=== PATIENT | male | born 1970 | race Caucasian/White ===

== ENCOUNTER 2021-04-13 20:11 | Emergency (ER) | payer OTHER, SELFPAY ==
[2021-04-13] VITALS (9 sets, daily range): BP systolic 138–199; BP diastolic 83–111; PULSE 92–105; RESP 14–22; TEMP 36.9; O2SAT 99–100
--- NOTE | ~2021-04-13 | XR_ITS ---
EXAMINATION: XR chest 1V portable 04/13/2021 21:17 INDICATION: Weakness. Anxiety. PROCEDURE: AP portable chest COMPARISON: No prior studies for comparison. FINDINGS: The lungs are clear. The cardiomediastinal silhouette is within normal limits. There are no pleural effusions. There is no pneumothorax suspected. IMPRESSION: 1: NO ACUTE CARDIOPULMONARY DISEASE. Reviewed, dictated and finalized at location A. H DERRICK OPERATOR
--- NOTE | ~2021-04-13 | CT_ITS ---
EXAMINATION: CT brain wo con DATE: 04/13/2021 21:20 INDICATION: Hallucinations. TECHNIQUE: Computed tomography (CT) of the head was performed without intravenous contrast. The dose- length product was 605.33 mGy-cm. Automated exposure control and iterative reconstruction technique w ere employed. COMPARISON: None FINDINGS: There is a focal hemorrhage measuring 1.7 x 1.4 x 1.7 cm in the left basal ganglia with mil d surrounding vasogenic edema. Generalized atrophy. No midline shift. No ventriculomegaly. There are scattered mild periventricular and subcortical white matter changes, most likely related to small ves carlota ischemic disease (microangiopathy). Paranasal sinuses and mastoids are pneumatized. No depressed skull fractures. IMPRESSION: 1. Focal hemorrhage of the left basal ganglia measuring up to 1.7 cm. Mild surrounding vasogenic pam a. Dr. Ebenezer Howard discussed with Dr. Elissa Duong MD at 04/13/2021 21:27 FREELANCE ART DIRECTOR. Reviewed, dictated and finalized at location A. LANCE ART DIRECTOR IMPRESSION: 1. Focal hemorrhage of the left basal ganglia measuring up to 1.7 cm. Mild surr ounding vasogenic edema. Dr. Ebenezer Howard discussed with Dr. Elissa Duong MD at 04/13/2021 21:27 FREELANCE ART DIRECTOR.
--- NOTE | 2021-04-13 21:04 | ECG_ITS ---
Measurements Intervals [place] Rate: 97 P: 60 NM: 136 QRS: -3 QRSD: 74 T: 73 QT: 317 QTc: 403 Interpretive Statements SINUS RHYTHM BASELINE ARTIFACT- I, II, III, AVR, AVL, AVF, V1 NORMAL ECG Electronically Signed On 04-13-2021 22:06:26 SECURITIES CLERK by Xavier Stephens D.O.
--- NOTE | 2021-04-13 21:06 | ED.AMS ---
HPI - Altered Mental Status General Chief Complaint: Altered Mental Status Stated Complaint: panic attack, delusions Time Seen by Provider: 04/13/21 20:56 Source: patient, family and RN notes reviewed Mode of arrival: ambulatory Limitations: no limitations History of Present Illness HPI narrative: This is 50 year old male with history of Diabetes mellitus and chronic kidney disease who presents for evaluation of hallucinations. Patient's brother states patient has not slept in days but he does not live with patient to know for sure. He states around 3 pm patient was having a panic attack . He also states patient seemed fatigued and he was having trouble talking. He is doing much better now. Patient suffered left foot injury 3 weeks ago and he had surgery at that time. He denies taking pain medication but states he was seen at [facility] this week for right sciatica pain. He was prescribed a muscle relaxer. He states taking the muscle relaxer made him have vivid dreams. His brother states he seems to have an issue determining difference between reality and dream. Patient reported that he was seeing ants crawling on the floor. He is oriented x 4. He denies any pain. He states he is having difficulty concentrating. Related Data Allergies Allergy/AdvReac Type Severity Reaction Status Date / Time No Known Allergies Allergy Unverified 04/13/21 20:18 Review of Systems Review of Systems: All systems reviewed & are unremarkable except as noted in HPI and below PMFSH Past Medical History Medical History (Updated 04/14/21 @ 00:11 by Elissa Duong MD) Chronic kidney disease Diabetes mellitus Surgical History Surgical History (Updated 04/13/21 @ 22:09 by Elissa Duong MD) Status post left foot surgery Social History Social History (Updated 04/13/21 @ 22:09 by Elissa Duong MD) Smoking status: Never smoker Alcohol intake: never Substance use: never Exam Const: General: no acute distress and alert Orientation/consciousness: patient oriented x3 HENMT: Head: normocephalic and atraumatic Face and sinus: face symmetric Mouth: Yes Normal oral and palatal mucosa present, Yes lip normal, Yes oropharynx normal and Yes moist mucous membranes Eyes: Pupils: Equal, round and reactive pupils present EOM: EOMs intact bilaterally Resp: Effort & Inspection: normal respiratory effort and no retractions Auscultation: clear to auscultation bilaterally Cardio: Rate: tachycardic Rhythm: regular rhythm Heart sounds: no murmurs GI: GI Palp: Yes Soft to palpation, No Tenderness to palpation present (GI) and No Guarding due to palpation present (GI) Auscultation: normal bowel sounds Skin: General skin exam: normal color Rashes: no rashes Neuro: General: patient oriented x3, moves all extremities, no focal motor deficits and CN's II-XI intact bilaterally Speech: normal speech Extrem: Other: left foot in fracture boot Psych: Mental Status: mental status grossly normal Affect: Anxious affect present Course Reevaluation(s) Reevaluation #1: I discussed with patient and brother about CT finding. They request [facility] as place of transfer for neurosurgery evaluation. Cardene to be started to treat hypertension Date: 04/13/21 Time: 22:00 Consultations Consultation #1: I discussed case with Dr. Rivero with neurosurgery at [facility]. He accepts patient under attending Dr. Doherty Date: 04/13/21 Time: 22:09 Vital Signs Vital signs: Vital Signs Temperature 98.5 F 04/13/21 20:14 Pulse Rate 100 04/13/21 20:14 Respiratory Rate 20 04/13/21 20:14 Blood Pressure 190/105 H 04/13/21 20:14 Pulse Oximetry 100 04/13/21 20:14 Temperature 98.5 F 04/13/21 20:14 Pulse Rate 105 H 04/13/21 23:57 Respiratory Rate 15 04/13/21 23:57 Blood Pressure 157/83 H 04/13/21 23:57 Pulse Oximetry 99 04/13/21 23:57 MDM - Altered Mental Status Lab Data Attestation: I reviewed the patient's lab results. Michelle
[2021-04-13 21:41] LABS: Basophils Absolute Auto 0.1 K/mm3 (0.0-0.1); Basophils Percent Auto 0.7 % (0.2-1.2); Eosinophils Absolute Auto 0.2 K/mm3 (0-0.3); Eosinophils Percent Auto 1.9 % (0-4.4); Immature Granulocyte Absolute 0.03 K/mm3 (0.00-0.031); Immature Granulocyte Percent A 0.3 % (0-0.5); Lymphocytes Absolute Auto 2.84 K/mm3 (0.9-3.2); Mean Corpuscular HGB Conc 34.3 g/dl (32-36); Mean Corpuscular Hemoglobin 29.9 pg (26-34); Mean Corpuscular Volume 87.1 fl (80-100); Mean Platelet Volume 9.2 fl (7.4-10.4); Monocytes Absolute Auto 0.8 K/mm3 (0.1-0.6); Monocytes Percent Auto 7.9 % (2.6-8.5); Neutrophils Absolute Auto 5.6 K/mm3 (1.3-6.7); Neutrophils Percent Auto 59.2 % (45.5-73.1); Platelet Count Result 389 k/mm3 (150-375); Red Blood Count 4.02 M/mm3 (4.6-6.20); Red Cell Distribution Width 12.2 % (11.5-14.5); White Blood Count 9.5 K/mm3 (4.5-10.0)
[2021-04-13] MEDS: niCARdipine 20 MG/200 ML 20 MG/200 ML BAG 50 MG IV CONT (21:46)
[2021-04-13 21:50] LABS: Prothrombin Time 12.6 Seconds (11.1-14.7)
[2021-04-13 21:51] LABS: Alanine Aminotransferase 15 U/L (4-50); Albumin Level 4.1 g/dL (3.5-5.1); Alkaline Phosphatase 132 U/L (38-126); Anion Gap 9 mmol/L (8-16); Aspartate Amino Transferase 20 U/L (17-59); Bilirubin,Total 0.3 mg/dL (0.2-1.3); Blood Urea Nitrogen 43 mg/dL (9-20); Calcium 9.5 mg/dL (8.4-10.2); Carbon Dioxide 25 mmol/L (22-30); Chloride 91 mmol/L (98-107); Creatine Kinase 93 U/L (55-170); Estimated CRCL calculation 27 ml/min; Estimated Glomerular Filt Rate 26; Glucose 174 mg/dL (65-110); Partial Thromboplastin Time 37.5 SECONDS (22.3-36.8); Potassium 4.5 mmol/L (3.4-5.0); Sodium 125 mmol/L (137-145)
[2021-04-13 21:59] LABS: Ammonia < 9 umol/L (9-30); Ethanol < 10 mg/dL (<10)
[2021-04-13 21:59] LABS: Alveolar/Arterial O2 Gradient 17.8 mmHg; Base Excess ABG -3.6 mEq/l (+/-2.0); Device ROOM AIR; Fractional Inspired Oxygen 21 %; HCO3 ABG 19.6 mEq/l (22.0-26.0); Oxygen Content ABG 16.7 %vol (16.0-22.0); Oxygen Saturation ABG 97.6 % (95.0-100.0); Oxyhemoglobin 96.2 % THb (90.0-100.0); PO2 FiO2 Ratio Arterial Blood 4.57 %; Site Drawn RIGHT BRACHIAL; Total Hemoglobin 12.3 g/dL (12.0-18.0); pH ABG 7.433 (7.350-7.450)
[2021-04-13 22:35] LABS: Add Urine Microscopic? YES; Appearance Urine Clear (Clear); Bilirubin Urine Negative (Negative); Blood Urine 1+ (Negative); Color Urine Straw (Yellow); Glucose Urine UA 1+ mg/dL (Negative); Ketones Urine Trace mg/dL (Negative); Leukocyte Esterase Ur Negative LEU/UL (Negative); Mucus Urine Rare /lpf; Nitrate Urine Negative (Negative); Protein Urine 2+ mg/dL (Negative); RBC Urine 0-2 /hpf (0-2); Specific Grav Ur 1.006 (1.001-1.035); Urobilinogen Urine Negative mg/dL (<2.0)
[2021-04-13] MEDS: SODIUM CHLORIDE 0.9% IV 1,000 ML 999 ML IV CONT (22:36)
[2021-04-13 22:45] LABS: Amphetamine Screen Urine Negative (Negative); Barbiturate Screen Urine Negative (Negative); Benzodiazepines Screen Urine Negative (Negative); Cannabinoid Screen Urine Negative (Negative); Cocaine Screen Urine Negative (Negative); Methadone Screen Urine Negative (Negative); Opiate Screen Urine Negative (Negative); Phencyclidine Screen Urine Negative (Negative)
--- NOTE | 2021-04-13 23:48 | PC.NURSE ---
made contact with [facility] to transfer pt to [facility] rm 9415 B-1. ETA for [facility] is 20 minutes.
--- NOTE | 2021-04-14 00:16 | PC.NURSE ---
[facility] has arrived and crew is aware that pt is going to [facility] rm 72[address] B-1
== END 2021-04-14 00:11 | disposition short-term general hospital (02) ==
PROVIDERS: Emergency Provider General Practice; PCP Internal Medicine Gastroenterology
DX: I62.9 Nontraumatic intracranial hemorrhage, unspecified (principal); N18.9 Chronic kidney disease, unspecified; E11.22 Type 2 diabetes mellitus with diabetic chronic kidney disease; E87.1 Hypo-osmolality and hyponatremia
CPT/HCPCS: 36415; 36600; 70450; 71045; 80053; 80307; 81001; 82140; 82550; 82805; 84443; 85025; 85610; 85730; 93005; 96365; 96366; 99291; J7030

== ENCOUNTER 2021-11-14 12:10 | Emergency (ER) | payer OTHER, SELFPAY ==
--- NOTE | ~2021-11-14 | XR_ITS ---
XR hand RT min 3V DATE: 11/14/2021 12:33 INDICATION: Diffuse right hand pain following a fall yesterday TECHNIQUE: 3 views COMPARISON: None FINDINGS: There are linear oblique fractures of the bases of the fourth and fifth metacarpal bones, with mild d orsal displacement of both fractures and intra-articular extension at the fifth carpometacarpal joint . No other fracture or dislocation is evident. Arterial calcifications noted in the distal forearm and wrist and hand. IMPRESSION: Fractures of the bases of the fourth and fifth metacarpal bones mild dorsal displacement and foreshortening, with intra-articular extension at the fifth carpometacarpal joint Reviewed, dictated and finalized at location B. IMPRESSION: Fractures of the bases of the fourth and fifth metacarpal bones mil d dorsal displacement and foreshortening, with intra-articular extension at the fifth carpometacarpal joint
[2021-11-14 12:23] VITALS: BP 189/88; PULSE 79; RESP 16; TEMP 36.7; O2SAT 99
--- NOTE | 2021-11-14 12:50 | ED.UPPEXIN ---
HPI - Extremity Injury (Upper) General Chief Complaint: Extremity Injury, Upper Stated Complaint: right hand swollen/pain Time Seen by Provider: 11/14/21 12:50 Source: patient Mode of arrival: ambulatory Limitations: no limitations History of Present Illness HPI narrative: 51 y/o male presented for c/o right hand pain and swelling after injury yesterday. States he tripped walking up the stairs and caught himself with the right arm. Endorses more bruising and pain today so he came for evaluation. Denies numbness, tingling, weakness of the hand. Endorses decreased ROM at wrist due to pain. Taking tylenol for pain. Related Data Home Medications Medication Instructions Recorded Confirmed lorazepam 0.5 mg tablet 1 tablet PO Q8-10H PRN Anxiety 11/14/21 11/14/21 losartan 25 mg tablet 1 tablet PO DAILY 11/14/21 11/14/21 propranolol 10 mg tablet 1 tablet PO DAILY 11/14/21 11/14/21 semaglutide 0.25 mg or 0.5 mg (2 0.5 mg subcut WEEKLY 11/14/21 11/14/21 mg/1.5 mL) subcutaneous pen injector (Ozempic) Allergies Allergy/AdvReac Type Severity Reaction Status Date / Time No Known Allergies Allergy Verified 11/14/21 13:00 Review of Systems Review of Systems: CONSTITUTIONAL: Denies body aches, fever, chills CARDIOVASCULAR: Denies chest pain, palpitations, or edema. RESPIRATORY: Denies cough or dyspnea. SKIN: Denies rash, itching, or wounds. MUSCULOSKELETAL: reports right hand pain, swelling NEUROLOGIC: Denies headache, numbness, tingling, or weakness. All systems reviewed & are unremarkable except as noted in HPI and below PMFSH Past Medical History Medical History Chronic kidney disease Diabetes mellitus Surgical History Surgical History Status post left foot surgery Social History Social History Smoking status: Never smoker Alcohol intake: never Substance use: never Comments At time of signature, I have reviewed and agree with nursing past medical, surgical, social and family history unless otherwise noted. Please see nursing chart for further information. There is no relevant family history pertinent to the presenting complaint Exam Narrative: GENERAL: Well-appearing HEAD: Normocephalic, atraumatic. EYES: PERRLA, conjunctivae clear NECK: Supple. CHEST: Speaks in full sentences. No respiratory distress. HEART: Regular rate and rhythm. Normal and equal peripheral pulses. EXTREMITIES: Right hand large amount of swelling to dorsal surface, bruising to palmar surface, limited ROM at wrist and 4th and 5th MCP, tender to palpate over lateral wrist; right hand has normal sensation, No open wounds, pulse palpable and equal bilaterally, skin warm, dry, pink. Capillary refill less than 3 seconds. SKIN: Warm, dry, no rash. NEURO: Alert and oriented x3. PSYCH: tearful at times Course Course Emergency Course: Patient is aware of diagnosis, understands and agrees to treatment plan. Anticipatory guidance given. Patient agrees to follow-up as directed and is aware of reasons to seek care at the emergency department. Portions of this record may have been created with voice recognition software Level of Care: Express Care Visit Vital Signs Vital signs: Vital Signs Temperature 98.1 F 11/14/21 12:23 Pulse Rate 79 11/14/21 12:23 Respiratory Rate 16 11/14/21 12:23 Blood Pressure 189/88 H 11/14/21 12:23 Pulse Oximetry 99 11/14/21 12:23 Oxygen Delivery Room Air 11/14/21 12:23 Temperature 98.1 F 11/14/21 12:23 Pulse Rate 79 11/14/21 12:23 Respiratory Rate 16 11/14/21 12:23 Blood Pressure 189/88 H 11/14/21 12:23 Pulse Oximetry 99 11/14/21 12:23 Oxygen Delivery Room Air 11/14/21 12:23 Reviewed Procedures Orthopedic Splinting/Casting Injury #1: Splinting/Casting Date: 11/14/21 S
== END 2021-11-14 13:15 | disposition home or self-care (01) ==
PROVIDERS: Emergency Provider Nurse Practitioner Family
DX: S62.314A Displaced fracture of base of fourth metacarpal bone, right hand, initial encounter for closed fracture (principal); S62.316A Displaced fracture of base of fifth metacarpal bone, right hand, initial encounter for closed fracture; W10.9XXA Fall (on) (from) unspecified stairs and steps, initial encounter; E11.22 Type 2 diabetes mellitus with diabetic chronic kidney disease; N18.9 Chronic kidney disease, unspecified
CPT/HCPCS: 29125; 73130; 99214; G0463

== ENCOUNTER 2022-12-08 13:29 | Emergency (ER) | payer OTHER, SELFPAY ==
--- NOTE | ~2022-12-08 | XR_ITS ---
XR finger 2nd RT min 2V 12/08/2022 13:49 Indication: Right second finger pain Procedure: 4 views right second finger Comparison: 11/14/2021 Findings: There is dorsal dislocation of the second finger at the DIP joint. There is a small ossific emma ventral to the middle phalanx, suspicious for avulsion fracture. There are soft tissue swellin g. No foreign bodies. Impression: 1: Dorsal dislocation of the right second finger at the distal interphalangeal joint. Possible avulsi on fracture fragment ventral to the middle phalanx. Reviewed, dictated and finalized at location A. Impression: 1: Dorsal dislocation of the right second finger at the distal interphalangeal joint. Possible avulsion fracture fragment ventral to the middle phalanx.
--- NOTE | ~2022-12-08 | XR_ITS ---
XR finger 2nd RT min 2V 12/08/2022 14:07 Indication: Post reduction right second finger Procedure: 2 views right second finger Comparison: 12/08/2022 and 11/14/2021 Findings: There is interval reduction of the second finger at the distal interphalangeal joint. There is a small avulsion fracture ventral base of the distal phalanx, best seen on lateral view. There is an ossific density ventral to the middle phalanx, suspicious for old avulsion injury. Impression: 1: Interval reduction of the right second finger at the distal interphalangeal joint with small avuls ion fracture ventral base of the distal phalanx. Reviewed, dictated and finalized at location A. Impression: 1: Interval reduction of the right second finger at the distal interphalangeal joint with small avulsion fracture ventral base of the distal phalanx.
[2022-12-08 13:40] VITALS: BP 100/62; PULSE 75; RESP 16; TEMP 37; O2SAT 100
--- NOTE | 2022-12-08 13:51 | ED.UPPEXIN ---
HPI - Extremity Injury (Upper) General Chief Complaint: Extremity Injury, Upper Stated Complaint: Right Hand Finger Pain Time Seen by Provider: 12/08/22 13:51 Source: patient Mode of arrival: ambulatory Limitations: no limitations History of Present Illness HPI narrative: 52 yo M presents with c/o pain and decreased ROM to R index finger. Pt states he was walking this AM and hit finger on door jam. Concerned from fracture. distal NV intact. all systems reviewed and negative except as noted above. Related Data Home Medications Medication Instructions Recorded Confirmed atorvastatin 40 mg tablet 40 mg PO DAILY 12/08/22 12/08/22 carvedilol 12.5 mg tablet 12.5 mg PO DAILY 12/08/22 12/08/22 gabapentin 300 mg capsule 300 mg PO HS 12/08/22 12/08/22 nifedipine 30 mg tablet,extended 30 mg PO DAILY 12/08/22 12/08/22 release Allergies Allergy/AdvReac Type Severity Reaction Status Date / Time No Known Allergies Allergy Verified 12/08/22 13:49 Review of Systems Review of Systems: CONSTITUTIONAL: Denies fever, chills, or sweats. EYES: Denies visual changes, redness, or discharge. ENT: Denies rhinorrhea, congestion, sore throat, or otalgia. CARDIOVASCULAR: Denies chest pain, palpitations, or edema. RESPIRATORY: Denies cough or dyspnea. GASTROINTESTINAL: Denies abdominal pain, nausea, vomiting, or diarrhea. GENITOURINARY: Denies dysuria or hematuria. SKIN: Denies rash or itching. MUSCULOSKELETAL: Denies back pain. reports pain and swelling to R index finger NEUROLOGIC: Denies headache, numbness, or weakness. PSYCHIATRIC: Denies anxiety or depression. All other systems reviewed are negative, except as documented in HPI. [facility] Past Medical History Medical History Chronic kidney disease Diabetes mellitus Surgical History Surgical History Status post left foot surgery Social History Social History Smoking status: Never smoker Alcohol intake: never Substance use: never Comments At time of signature, agree with nursing past medical, surgical, social and family history. There is no relevant family history pertinent to the presenting complaint. Exam Narrative: GENERAL: This is a well-nourished, well-developed patient, in no apparent distress. HEAD: normocephalic, atraumatic. EYES: PERRL. Sclera clear/white. Vision is grossly intact. EARS: External ears normal NOSE: External nose normal NECK: Neck supple, non-tender without lymphadenopathy, masses or thyromegaly. CARDIOVASCULAR: Regular rate and rhythm without murmurs, gallops, or rubs. RESPIRATORY: Clear to auscultation. Breath sounds equal bilaterally. No wheezes, rales, or rhonchi. SKIN: warm, Dry, intact with no suspicious lesions or rash, good texture and turgor. NEURO: awake, alert, and oriented to person, place and time. There were no obvious focal neurologic abnormalities. EXTREMITIES: swelling and tenderness on palpation of distal aspect R index finger. no obvious deformity. distal NV intact. decreased flexion of distal phalanx. Course Course Level of Care: Express Care Visit Vital Signs Vital signs: Vital Signs Temperature 37.0 C 12/08/22 13:40 Pulse Rate 75 12/08/22 13:40 Respiratory Rate 16 12/08/22 13:40 Blood Pressure 100/62 12/08/22 13:40 Pulse Oximetry 100 12/08/22 13:40 Oxygen Delivery Room Air 12/08/22 13:40 Temperature 37.0 C 12/08/22 13:40 Pulse Rate 75 12/08/22 13:40 Respiratory Rate 16 12/08/22 13:40 Blood Pressure 100/62 12/08/22 13:40 Pulse Oximetry 100 12/08/22 13:40 Oxygen Delivery Room Air 12/08/22 13:40 reviewed Procedures Orthopedic Joint Reduction Joint #1: Orthopedic Joint Reduction Date: 12/08/22 Orthopedic Joint Reduction Time: 14:00 Side: right Joint Reduction
== END 2022-12-08 14:45 | disposition home or self-care (01) ==
PROVIDERS: Emergency Provider Nurse Practitioner Family; PCP Family Medicine
DX: S62.630A Displaced fracture of distal phalanx of right index finger, initial encounter for closed fracture (principal); W22.09XA Striking against other stationary object, initial encounter; S63.290A Dislocation of distal interphalangeal joint of right index finger, initial encounter; E11.22 Type 2 diabetes mellitus with diabetic chronic kidney disease; N18.9 Chronic kidney disease, unspecified; Z79.84 Long term (current) use of oral hypoglycemic drugs
CPT/HCPCS: 26770; 73140; 99215; G0463

== ENCOUNTER 2023-09-18 10:08 | Day surgery (SDC) | payer OTHER, SELFPAY ==
--- NOTE | 2023-09-18 12:24 | PM.HPGS ---
History of Present Illness History of Present Illness Consent: Risks, benefits, and alternatives have been discussed and questions answered. Patient agrees to proceed with procedure. Chief complaint: replace peg tube Narrative: Lawrence Wu is a 52 year old male with past medical history of hypertension, chronic kidney disease, diabetes mellitus type 2, neuropathy, anxiety, prior TIA, thalamic stroke and peg tube placement 09/09 because silent aspiration at [facility] then transferred to local rehabilitation. Earlier this morning found that G-tube fell out and is here to place a new one. Review of Systems Review of Systems: All systems reviewed & are unremarkable except as noted in HPI and below PMFSH Past Medical History Medical History (Updated 09/18/23 @ 12:27 by Kamron Thomas MD) Chronic kidney disease Diabetes mellitus Silent aspiration Surgical History Surgical History Status post left foot surgery Family History Family History (Updated 09/14/23 @ 03:01 by Salma Mack RN) Sibling Hyperlipemia Father COPD (chronic obstructive pulmonary disease) Father Rheumatoid arthritis Mother Hypertension Social History Social History Smoking status: Never smoker Second hand tobacco smoke exposure: Yes (Father smoked) Alcohol intake: former Substance use: never Do You Feel Safe in your Home?: Yes Lack of Transportation: No Lack of Food: Never True Current Housing: I Have Housing Concerned About Future Housing: No Difficulty Paying Gas/Electric Bills: No Difficulty Paying for Meds: No Currently Unemployed: No Education: Bachelor's Degree Difficulty w/ Childcare or Family Care: No Spiritual care concerns: No Meds Home Medications and Allergies Home Medications Medication Instructions Recorded Confirmed Type gabapentin 300 mg capsule 300 mg feeding tube HS 12/08/22 09/13/23 History amlodipine 2.5 mg tablet (Norvasc) 7.5 mg feeding tube QAM 09/13/23 09/13/23 History aspirin 81 mg capsule 81 mg feeding tube EVERY OTHER DAY 09/13/23 09/13/23 History atorvastatin 20 mg tablet 20 mg feeding tube DAILY 09/13/23 09/13/23 History carvedilol 6.25 mg tablet 6.25 mg feeding tube BIDWMEAL 09/13/23 09/13/23 History niacin 250 mg tablet 250 mg feeding tube DAILY 09/13/23 09/13/23 History semaglutide 7 mg tablet 7 mg PO DAILY 09/13/23 09/13/23 History sertraline 25 mg tablet 25 mg feeding tube DAILY 09/13/23 09/13/23 History Allergies Allergy/AdvReac Type Severity Reaction Status Date / Time No Known Allergies Allergy Verified 12/08/22 13:49 Exam Const: General: comfortable and no acute distress HENMT: Face/Nose/Sinus: Normal nares present Eyes: General: appearance normal, both eyes and all related structures Neck: Neck: no JVD Resp: Auscultation: clear to auscultation bilaterally Cardio: Rate: regular rate Rhythm: regular rhythm GI: Inspection: non-distended GI Palp: Yes Soft to palpation and No Tenderness to palpation present (GI) Auscultation: normal bowel sounds Other: gastrostomy site is too small to even try to place a new g-tube at bedside Skin: General skin exam: normal color Neuro: Speech: normal speech Other: left sided hemiparesis Extrem: General: normal to inspection Psych: Mental Status: mental status grossly normal Assessment and Plan Assessment and plan (1) Silent aspiration: Code(s): T17.900A - Unspecified foreign body in respiratory tract, part unspecified causing asphyxiation, initial encounter Status: Acute Assessment and Plan: we won't be able to place new g-tube at bedside, we need to use EGD and anesthesia patient is agreeable to proceed (2) Left hemiparesis: Code(s): G81.94 - Hemiplegia, unspecified affecting left nondominant side Status: Acute (3) Intraparenchyma
[2023-09-18 12:56] VITALS: BP 147/84; PULSE 69; RESP 18; TEMP 36.6; O2SAT 98
[2023-09-18] MEDS: LACTATED RINGERS 1,000 ML 150 ML IV CONT (12:59)
[2023-09-18] MEDS: ceFAZolin 1 GM/NS 50 ML 1 GM/50 ML BAG IVPB (13:00)
--- NOTE | 2023-09-18 13:00 | WPDANESEPPF ---
Anes - Initial Pre Proc Eval Procedure: Operation Date: 09/18/23 14:30 Proposed Procedures p Percutaneous Endoscopic Gastrostomy - Kamron Thomas MD Date/Time: 09/18/23 13:00 Surgeon: Kamron Thomas MD Pre Op Diagnosis: replace peg tube Patient Data Age: 52 Gender: M Height: Weight: Last Vital Signs Temp 97.8 F 09/18/23 12:56 Pulse 69 09/18/23 12:56 Resp 18 09/18/23 12:56 BP 147/84 H 09/18/23 12:56 Pulse Ox 98 09/18/23 12:56 O2 Del Method Room Air 09/18/23 12:56 Allergies Allergy/AdvReac Type Severity Reaction Status Date / Time No Known Allergies Allergy Verified 09/18/23 12:51 Home Medications Medication Instructions Recorded Confirmed Type gabapentin 300 mg capsule 300 mg feeding tube HS 12/08/22 09/13/23 History amlodipine 2.5 mg tablet (Norvasc) 7.5 mg feeding tube QAM 09/13/23 09/13/23 History aspirin 81 mg capsule 81 mg feeding tube EVERY OTHER DAY 09/13/23 09/13/23 History atorvastatin 20 mg tablet 20 mg feeding tube DAILY 09/13/23 09/13/23 History carvedilol 6.25 mg tablet 6.25 mg feeding tube BIDWMEAL 09/13/23 09/13/23 History niacin 250 mg tablet 250 mg feeding tube DAILY 09/13/23 09/13/23 History semaglutide 7 mg tablet 7 mg PO DAILY 09/13/23 09/13/23 History sertraline 25 mg tablet 25 mg feeding tube DAILY 09/13/23 09/13/23 History Patient hx anesthesia problems: none Family hx anesthesia problems: none Results Review: All pre-operative results and documents have been reviewed as part of the pre-operative evaluation. [facility] Past Medical History Medical History (Updated 09/18/23 @ 12:27 by Kamron Thomas MD) Chronic kidney disease Diabetes mellitus Silent aspiration Surgical History Surgical History Status post left foot surgery Family History Family History (Updated 09/14/23 @ 03:01 by Salma Mack RN) Sibling Hyperlipemia Father COPD (chronic obstructive pulmonary disease) Father Rheumatoid arthritis Mother Hypertension Social History Social History Smoking status: Never smoker Second hand tobacco smoke exposure: Yes (Father smoked) Alcohol intake: former Substance use: never Do You Feel Safe in your Home?: Yes Lack of Transportation: No Lack of Food: Never True Current Housing: I Have Housing Concerned About Future Housing: No Difficulty Paying Gas/Electric Bills: No Difficulty Paying for Meds: No Currently Unemployed: No Education: Bachelor's Degree Difficulty w/ Childcare or Family Care: No Spiritual care concerns: No Anes - Eval Final PreProcedure Day of Procedure 09/18/23 13:00 Patient weight: normal Heart: regular rate and rhythm Lungs: clear to auscultation Airway: Mallampati scale class III Neurological: alert and oriented Last oral intake: >/= 8 hours ASA classification: IV Emergent: no Anesthetic plan: proceed Anesthesia type and monitoring: general GIVS and standard monitoring Results Review: All pre-operative results and documents have been reviewed as part of the pre-operative evaluation. Informed Consent: The patient's anesthetic plan and its attendant risks and benefits were discussed with the patient/family/POA. Questions were solicited and answers provided to the satisfaction of the patient/family/POA.
[2023-09-18 13:01] LABS: Glucose Point of Care 143 mg/dl (65-105)
[2023-09-18 13:54] VITALS: BP 97/61; PULSE 70; RESP 16; O2SAT 100
[2023-09-18 14:04] VITALS: BP 107/68; PULSE 65; RESP 14; O2SAT 100
[2023-09-18 14:14] VITALS: BP 131/86; PULSE 77; RESP 23; O2SAT 100
--- NOTE | 2023-09-18 14:32 | SUR.PHASEII ---
Patient discharged via ambulance [facility]
== END 2023-09-18 14:32 ==
PROVIDERS: PCP Family Medicine; Visit Provider Internal Medicine Gastroenterology
PROC: 0DH63UZ Insertion of Feeding Device into Stomach, Percutaneous Approach (ICD-10-PCS; CPT 43246; principal; 2023-09-18 14:30)
DX: K94.23 Gastrostomy malfunction (principal); I69.354 Hemiplegia and hemiparesis following cerebral infarction affecting left non-dominant side; I12.9 Hypertensive chronic kidney disease with stage 1 through stage 4 chronic kidney disease, or unspecified chronic kidney disease; E11.22 Type 2 diabetes mellitus with diabetic chronic kidney disease; N18.9 Chronic kidney disease, unspecified; E11.40 Type 2 diabetes mellitus with diabetic neuropathy, unspecified; F41.9 Anxiety disorder, unspecified; Z79.82 Long term (current) use of aspirin; Z79.84 Long term (current) use of oral hypoglycemic drugs
CPT/HCPCS: 43246; 82948; J0690; J2371; J2704; J7120

== ENCOUNTER 2024-01-06 15:30 | Outpatient (RCR) | payer OTHER, SELFPAY ==
--- NOTE | 2023-10-24 16:44 | OPREHPOC ---
Outpatient Therapy Plan of Care This is a Multidisciplinary Plan of Care that may contain components documented by all disciplines (PT, OT, and ST.) PT Problem 1 PT Problem #1 Knowledge Deficit PT Goal 1 Goal [place] with HEP Target Visit 4 PT Problem 2 PT Problem #2 Impaired Strength PT Goal 1 Goal Improve rafia hip flexion strength to 4+/5 to improve foot clearance with gait Target Visit 10 PT Goal 2 Goal Improve rafia hip abduction strength to 4/5 to improve lateral stability with gait and transfers Target Visit 10 PT Problem 3 PT Problem #3 Impaired Gait PT Goal 1 Goal Patient will ambulate with modified independence and use of single point cane for improved independent mobility. Target Visit 10 PT Goal 2 Goal Improve Tinetti score by 12 points to reduce gross fall risk Target Visit 10 PT Problem 4 PT Problem #4 Impaired Strength PT Goal 1 Goal Improve left shoulder flexion strength to 4+/5 to improve lifting ability with ADLs Target Visit 10
--- NOTE | 2023-10-24 16:44 | PTOPEVAL1 ---
Assessment and note entered by Karsten Duran, PT Evaluation Information Assessment Status Evaluation Diagnosis Intracranial hemorrhage Onset 08/29/23 Subjective Information is present. States that he has been mostly getting around with the wheelchair at this time but has walker and has been doing some walking at home. Reports that he has most of his weakness on his left side. Feels that he is getting some feeling in his arm and leg but states that it feels like a wooden leg. He originally felt nothing in his leg. He has 2 small steps to enter home. Would like to return to driving if he can. Reports that he did develop some joint pain from sitting around a lot. Reported Pain Level Pain Score 0: Self Report Assessment PT Clinical Summary Patient presents with weakness of core control, hips, and shoulder girdle. Will benefit from skilled therapy to improve gross LE strengthening and postural strengthening. Patient demonstrates significant fall risk with Tinetti examination. Will need to integrate functional mobility and balance training for goals of independence. Plan of Care Interventions Gait Training,Hot Pack/Cold Pack,Manual Therapy, Neuro Re-education,Therapeutic Activities, Therapeutic Exercise PT Services Indicated Yes Treatment Frequency and 2x/week for 10 visits Duration These treatments will address the objective and functional deficits as defined above. The patient will be advanced safely and appropriately in order for the patient to progress towards his/her prior level of function. Additional exercises will be introduced and as well as a comprehensive home exercise program upon discharge, if needed, ?to ensure carryover of functional gains achieved in the clinic. This treatment plan has been reviewed and agreement upon by the patient.
--- NOTE | 2023-10-25 09:48 | OTOPEVAL1 ---
Assessment and note entered by Balta Tracy, JELLY/Josué, CHT Evaluation Information Assessment Status Evaluation Diagnosis CVA Onset 08/29/23 Subjective Information Patient is s/p inpatient rehab x3 weeks, discharged home 10/04/23. He presents today in a w/c with his . Since discharging from rehab, his has been helping with showers, dressing, and toileting. He is using a w/c for all mobility and performing stand pivot transfers. typically helps with all transfers, but at times she has found that he has gotten himself back to bed on his own. He reports left sided weakness. He is right handed. Assessment OT Clinical Summary Patient referred to outpatient OT with dx of CVA with residual left sided weakness. He presents with intact functional ROM and 4/5 gross UE strength, compared to 4+/5 on the right UE. 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 Skilled OT indicated to maximize functional strength, coordination, and use of the left UE for ADLs. Plan of Care Interventions Therapeutic Exercise,Neuro Re-education, Therapeutic Activities OT Services Indicated Yes Treatment Frequency and 2x/week for 10 visits Duration These treatments will address the objective and functional deficits as defined above. The patient will be advanced safely and appropriately in order for the patient to progress towards his/her prior level of function. Additional exercises will be introduced and as well as a comprehensive home exercise program upon discharge, if needed, ?to ensure carryover of functional gains achieved in the clinic. This treatment plan has been reviewed and agreement upon by the patient.
--- NOTE | 2023-10-25 09:48 | OPREHPOC ---
Outpatient Therapy Plan of Care This is a Multidisciplinary Plan of Care that may contain components documented by all disciplines (PT, OT, and ST.) PT Problem 1 PT Problem #1 Knowledge Deficit PT Goal 1 Goal [place] with HEP Target Visit 4 PT Problem 2 PT Problem #2 Impaired Strength PT Goal 1 Goal Improve rafia hip flexion strength to 4+/5 to improve foot clearance with gait Target Visit 10 PT Goal 2 Goal Improve rafia hip abduction strength to 4/5 to improve lateral stability with gait and transfers Target Visit 10 PT Problem 3 PT Problem #3 Impaired Gait PT Goal 1 Goal Patient will ambulate with modified independence and use of single point cane for improved independent mobility. Target Visit 10 PT Goal 2 Goal Improve Tinetti score by 12 points to reduce gross fall risk Target Visit 10 PT Problem 4 PT Problem #4 Impaired Strength PT Goal 1 Goal Improve left shoulder flexion strength to 4+/5 to improve lifting ability with ADLs Target Visit 10 OT Problem 1 OT Problem #1 Knowledge Deficit OT Goal 1 Goal 1. Patient to be independent with instructed materials. Target Visit 10 OT Problem 2 OT Problem #2 Impaired Strength OT Goal 1 Goal 1. Increase (L) gross shoulder strength to 4+/5 2. Increase (L) gross elbow strength to 4+/5 3. Increase (L) gross wrist strength to 4+/5 4. Increase (L) nematology teacher strength to 70 lbs. Target Visit 10 OT Problem 3 OT Problem #3 Impaired Coordination OT Goal 1 Goal 1. Be able to complete the 9-hole peg test with the left hand in 29 seconds or less. Target Visit 10
--- NOTE | 2023-12-02 09:50 | PTOPPROG ---
Assessment and note entered by Keiko Toro, PT Progress Report Assessment Status Progress Diagnosis Intracranial hemorrhage Onset 08/29/23 Subjective Information doing better with walking, use the cane now, no longer need the walker; have not had any falls; BP has been staying good with the new meds; doing the exercises at home- green and red bands; need more therapy for balance, have 2 steps at home and doing OK on them, holding on; is having some joint pain in shoulders, hips; have not been going out much, but did OK going into his mom's on stairs; have not been out shopping or going places; Assessment PT Clinical Summary Lawrence has received 10 PT sessions. His Hemalatha present during today's session and supportive to pt. Compared to the initial evaluation: gait has improved from wheeled walker to cane; increase Tinetti balance/gait score from -, but still at high risk for falls; has not had any falls; increase LE strength, but continues to have decreased motor control of L LE; 2 minute walking test distance of 320' with cane; 5 reps sit/stand time of 24 seconds with use of 1 UE; leg press R 40#/L 60# x 10 reps; Lawrence and his are motivated to improve his activity level and strength. He has not been going out into the community, except for therapy and dr prasad Reinforced with them to increase walking and activity as tolerated. The goals were partially met. Continue PT treatments, to further increase LE strength, gait and balance skills. Progression of HEP. Plan of Care Interventions Gait Training,Neuro Re-education,Patient/Caregiver Education,Therapeutic Activities,Therapeutic Exercise PT Services Indicated Yes Treatment Frequency and 1-2x/wk for 8 visits Duration These treatments will address the objective and functional deficits as defined above. The patient will be advanced safely and appropriately in order for the patient to progress towards his/her prior level of function. Additional exercises will be introduced and as well as a comprehensive home exercise program upon discharge, if needed, ?to ensure carryover of functional gains achieved in the clinic. This treatment plan has been reviewed and agreement upon by the patient.
--- NOTE | 2023-12-02 10:19 | OTOPDC ---
Assessment and note entered by Balta Tracy, OTR/L, CHT OT D/C Summary 12/02/23 Diagnosis CVA Onset 08/29/23 Subjective Information Patient reports good progress since beginning therapy a month ago. He reports he can now use his left UE to hold and drink from a cup. He has progressed to being able to bathe himself, providing only set up assist. He has progressed to being able to dress himself and tie his shoes. He has progressed to being able complete toileting independently. Assessment OT Clinical Summary Patient referred to outpatient OT with dx of CVA with residual left sided weakness. He presents today after 9 treatment session for reassessment. Gross strength had made progress, measuring 4+/5 grossly. He was able to complete the 9-hole peg test with the left hand 10 seconds faster today, in 26 seconds, which is WNL. No further skilled OT indicated at this time. 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 They verbalize excellent understanding and are in agreement with D/C. Plan of Care OT Services Indicated No
--- NOTE | 2024-01-06 16:23 | PTOPDC ---
Assessment and note entered by Keiko Toro, PT Discharge Report Assessment Status Discharge Diagnosis Intracranial hemorrhage Onset 08/29/23 Subjective Information in the house is not using the cane, but when go out, use it; is standing for shower now, using grab bar; have been doing the exercises at home for his arms and legs; has returned to work, so he is going to his mom's during day, so he is not left alone; is indep with showering, dressing and helping some with home light chores; pt and agree to discharge from PT and he is to continue HEP and walking as tolerate for strength and endurance. Reported Pain Level Pain Score 0,2,0,0: Self Report-LBP, L knee, neck, shoulder pain Assessment PT Clinical Summary Lawrence has received a total of 18 PT sessions. Compared to the last reevaluation: is using the cane for distances and in home without device; Tinetti balance score from 16 to 20/28; 2 minute walking test distance from 320' to 255' but more control and balance with walking--did not have loss of balance and indep on level surface; 5 reps sit/stand time from 24 sec with 1 UE use to 26 seconds without use of UE's; increase strength and motor control of L LE; with single leg press for 10 reps: R 70#/ L 50#; education completed for HEP. The goals were partially achieved. He is safe with mobility and education completed for HEP and safety. Discussed with pt and Lisha, to continue the HEP and progress walking and activity as tolerated Discharge PT services. Plan of Care PT Services Indicated No
== END 2024-01-06 17:21 | disposition home or self-care (01) ==
LOC: ANHPT 15:30
PROVIDERS: PCP Family Medicine; Visit Provider Family Medicine
DX: I62.9 Nontraumatic intracranial hemorrhage, unspecified (principal)
CPT/HCPCS: 97110; 97112; 97116; 97161; 97165; 97530

== ENCOUNTER 2025-01-13 20:32 | Emergency (ER) | payer OTHER, SELFPAY ==
--- NOTE | ~2025-01-13 | XR_ITS ---
EXAMINATION: XR chest 1V DATE: 01/13/2025 20:52 INDICATION: Left rib pain post fall TECHNIQUE: frontal view of the chest was obtained. COMPARISON: Chest radiograph dated 04/13/2021 FINDINGS: Unchanged small calcified nodules in the left upper lung zone consistent with old granulomatous disease. No new airspace opacities, pulmonary edema, pleural effusion or pneumothorax. The cardiomediastinal silhouette is normal. Mild thoracic levocurvature. No evident acute osseous abnormality. IMPRESSION: 1. No acute cardiopulmonary disease. Reviewed, dictated and finalized at location A.
[2025-01-13 20:55] VITALS: BP 137/82; PULSE 88; RESP 16; TEMP 37; O2SAT 100
[2025-01-13] MEDS: LIDOCAINE 5% PATCH 1 PATCH TRANSDERM (23:00)
[2025-01-13] MEDS: ACETAMINOPHEN 500 MG TABLET 1000 MG PO (23:00)
--- NOTE | 2025-01-13 23:10 | ED.FALL ---
HPI - Fall General Chief Complaint: Fall Stated Complaint: fall/left sided rib pain Time Seen by Provider: 01/13/25 22:24 History of Present Illness HPI Narrative: Patient is a 54-year-old male who presents to the ER after falling in his bathtub. He reports he lifted 1 of his feet up to scrub the bottom of his foot when he fell on his left side, hitting his left rib cage along the side of the bathtub. Patient endorses some bruising to the site. He also endorses pain with coughing. Patient has a history of a hemorrhagic stroke and chronic kidney disease. He reports he uses Tylenol at home for pain control. Related Data Home Medications ?Medication ?Instructions ?Recorded ?Confirmed ?Last Taken ?Type amlodipine 2.5 mg tablet (Norvasc) 7.5 mg feeding tube QAM 09/13/23 09/13/23 09/12/23 08:05 History aspirin 81 mg capsule 81 mg feeding tube EVERY OTHER DAY 09/13/23 09/13/23 Unknown History atorvastatin 20 mg tablet 20 mg feeding tube DAILY 09/13/23 09/13/23 Unknown History carvedilol 6.25 mg tablet 6.25 mg feeding tube BIDWMEAL 09/13/23 09/13/23 Unknown History niacin 250 mg tablet 250 mg feeding tube DAILY 09/13/23 09/13/23 Unknown History Allergies Allergy/AdvReac Type Severity Reaction Status Date / Time No Known Allergies Allergy Verified 01/13/25 21:00 Review of Systems Review of Systems: All systems reviewed & are unremarkable except as noted in HPI and below PMFSH Past Medical History Medical History Silent aspiration Chronic kidney disease Diabetes mellitus Surgical History Surgical History Status post left foot surgery Family History Family History Sibling Hyperlipemia Father COPD (chronic obstructive pulmonary disease) Father Rheumatoid arthritis Mother Hypertension Social History Social History Smoking status: Never smoker Second hand tobacco smoke exposure: Yes (Father smoked) Alcohol intake: former Substance use: never Do You Feel Safe in your Home?: Yes Lack of Transportation: No Lack of Food: Never True Current Housing: I Have Housing Concerned About Future Housing: No Difficulty Paying Gas/Electric Bills: No Difficulty Paying for Meds: No Currently Unemployed: No Education: Bachelor's Degree Difficulty w/ Childcare or Family Care: No Spiritual care concerns: No Exam Narrative: GENERAL: Well appearing, well-nourished, non-toxic, in no acute distress. HEAD: Normocephalic, atraumatic. NECK: Supple. No adenopathy, no masses. RESPIRATORY: Airway patent, respirations nonlabored. Clear to auscultation bilaterally, no rales, rhonchi, wheezing. CARDIOVASCULAR: Regular rate and rhythm without murmurs, rubs, or gallops. Peripheral pulses 2+ and equal bilaterally. ABDOMINAL: Soft, nontender, nondistended, no hepatosplenomegaly. Normoactive BS. MUSCULOSKELETAL: Moves all extremities. Strength/ROM intact without gross deformities. Mildly tender ribcage L side with palpation. SKIN: Warm, dry, normal color. No rashes. NEURO: A&O X3. Speech clear. Cranial nerves II-XII intact. No ataxic movements. PSYCHIATRIC: Appropriate mood and affect. Normal interaction. Course Vital Signs Vital signs: Vital Signs Temperature 37.0 C 01/13/25 20:55 Pulse Rate 88 01/13/25 20:55 Respiratory Rate 16 01/13/25 20:55 Blood Pressure 137/82 01/13/25 20:55 Pulse Oximetry 100 01/13/25 20:55 Oxygen Delivery Room Air 01/13/25 20:55 Temperature 37.0 C 01/13/25 20:55 Pulse Rate 88 01/13/25 20:55 Respiratory Rate 16 01/13/25 20:55 Blood Pressure 137/82 01/13/25 20:55 Pulse Oximetry 100 01/13/25 20:55 Oxygen Delivery Room Air 01/13/25 20:55 MDM - Fall MDM Narrative Medical decision making narrative: Patient is a 54-year-old male who presents to the ER after falling in his bathtub. He reports he lifted 1 of his feet up to scrub the bottom of his foot when he fell on his left side, hitting his left rib cage along the side of the bathtub. Patient endorses some bruising to the site. He also endorses pain with coughing. Patient has a history of a hemorrhagic stroke and chronic kidney disease. He reports he uses Tylenol at home for pain control. Patient's chest x-ray shows no acute abnormalities. Patient Education/Shared MDM: Results of imaging shared with patient. He will be given Tylenol and a lidocaine patch here in the ER. Patient strongly advised to follow-up with their PCP as soon as possible. He will be discharged home with a prescription for lidocaine patches. Strict return precautions provided. Patient verbalized understanding and is in agreement with plan. Vital signs stable at time of discharge. All questions answered. Differential Diagnosis Differential diagnosis: Likely other (Ribcage fracture, rib contusion, pneumothorax) Imaging Data Attestation: I personally reviewed and interpreted this imaging study as follows: Radiologist's impression: Impressions Chest X-Ray 01/13/25 21:06 IMPRESSION: 1. No acute cardiopulmonary disease. Discharge Plan Discharge Clinical Impression: Chest wall injury, Contusion of rib on left side Patient Disposition: Home Condition: Stable Instructions: Antibiotic Form, Rib Contusion (ED) Additional Instructions: Please return to the ER with any worsening symptoms. Follow-up with primary care provider as soon as possible to ensure you are healing correctly. Take all medications as prescribed, including regularly scheduled medications. You may take Tylenol and use lidocaine patches for pain control. Patient Language: Pakistani Prescriptions: New acetaminophen 500 mg capsule 1,000 mg PO TID PRN (Reason: fever or pain) Qty: 60 0RF lidocaine [Aspercreme (lidocaine)] 4 % adhesive patch,medicated 1 patch topical BID PRN (Reason: pain) Qty: 30 0RF No Action amlodipine [Norvasc] 2.5 mg Tablet 7.5 mg feeding tube QAM aspirin 81 mg Capsule 81 mg feeding tube EVERY OTHER DAY atorvastatin 20 mg Tablet 20 mg feeding tube DAILY carvedilol 6.25 mg Tablet 6.25 mg feeding tube BIDWMEAL Rx Instructions: must administer with a meal/food niacin 250 mg Tablet 250 mg feeding tube DAILY famotidine 20 mg Tablet 20 mg PO Q12HR Qty: 14 0RF gabapentin [Neurontin] 300 mg Capsule 300 mg BYMOUTH TID Qty: 42 0RF calcium carbonate 500 mg calcium (1,250 mg) Tablet,Chewable 200 mg PO Q6H PRN (Reason: Indigestion) Qty: 7 0RF ondansetron 4 mg Tablet,Disintegrating 4 mg PO Q6H PRN (Reason: Nausea And Vomiting) Qty: 7 0RF sertraline [Zoloft] 50 mg Tablet 50 mg BYMOUTH DAILY Qty: 30 0RF Rybelsus 7 mg tablet 7 mg PO DAILY Qty: 14 0RF Follow-up/Referrals: Harms,Jorge A Mayer M.D. [Primary Care Provider] Time of Disposition: 23:09
[2025-01-13 23:19] VITALS: BP 122/76; PULSE 67; RESP 18; TEMP 36.6; O2SAT 99
== END 2025-01-13 23:20 | disposition home or self-care (01) ==
PROVIDERS: Emergency Provider Registered Nurse; PCP Family Medicine
DX: S20.212A Contusion of left front wall of thorax, initial encounter (principal); N18.9 Chronic kidney disease, unspecified; E11.22 Type 2 diabetes mellitus with diabetic chronic kidney disease; Z86.73 Personal history of transient ischemic attack (TIA), and cerebral infarction without residual deficits; Z79.899 Other long term (current) drug therapy; Z79.82 Long term (current) use of aspirin; Z79.84 Long term (current) use of oral hypoglycemic drugs; Z77.22 Contact with and (suspected) exposure to environmental tobacco smoke (acute) (chronic); W18.2XXA Fall in (into) shower or empty bathtub, initial encounter
CPT/HCPCS: 71045; 99283; A9270